=== PATIENT | male | born 1955 | race Caucasian/White ===

== ENCOUNTER → 2020-02-14 | Outpatient (CLI) | payer BC ==
[~2020-02-14] MED LIST: OMNIPAQUE 350 MG/ML, 100ML BOTTLE ONE
[2020-02-14 13:12] LABS: CREATININE 1.44 mg/dL (0.7-1.3)
== END | disposition home or self-care (01) ==
LOC: RAD 12:30
PROVIDERS: ATTEND Nurse Practitioner Family
DX: K76.0 Fatty (change of) liver, not elsewhere classified (principal); K57.30 Diverticulosis of large intestine without perforation or abscess without bleeding; N40.0 Benign prostatic hyperplasia without lower urinary tract symptoms; I25.10 Atherosclerotic heart disease of native coronary artery without angina pectoris; N28.1 Cyst of kidney, acquired; I70.0 Atherosclerosis of aorta
CPT/HCPCS: 36415; 74177; 82565; Q9967

== ENCOUNTER → 2020-06-04 | Outpatient (CLI) | payer BC, OTHER | END | disposition home or self-care (01) | LOC: RAD 10:57 | PROVIDERS: ATTEND Physician Assistant Medical | DX: Z13.6 Encounter for screening for cardiovascular disorders (principal); I70.0 Atherosclerosis of aorta; R09.89 Other specified symptoms and signs involving the circulatory and respiratory systems; R91.1 Solitary pulmonary nodule; I65.23 Occlusion and stenosis of bilateral carotid arteries | CPT/HCPCS: 75571; 93880 ==

== ENCOUNTER → 2020-07-31 | Outpatient (CLI) | payer BC | END | disposition home or self-care (01) | LOC: CFH 10:39 | PROVIDERS: ATTEND Family Medicine | DX: R91.1 Solitary pulmonary nodule (principal); J43.9 Emphysema, unspecified | CPT/HCPCS: 71275; 82565; Q9967 ==

== ENCOUNTER 2020-09-03 07:46 | Outpatient (CLI) | payer BC | END 2020-09-03 23:59 | disposition home or self-care (01) | LOC: CVU 07:46 | PROVIDERS: ATTEND Internal Medicine Cardiovascular Disease | DX: I35.8 Other nonrheumatic aortic valve disorders (principal); I25.10 Atherosclerotic heart disease of native coronary artery without angina pectoris | CPT/HCPCS: 93306 ==

== ENCOUNTER 2020-10-10 11:16 | Day surgery (SDC) | payer BC ==
[~2020-10-10] VITALS: Ht 185.4 cm; Wt 90.9 kg
[2020-10-10 11:51] VITALS: BP 123/83
[2020-10-10] MEDS ORDERED: SODIUM CHLORIDE 0.9% 1,000 ML IV SCH (12:00)
[2020-10-10] MEDS ORDERED: ASPIRIN 325 MG TABLET EC PO ONE (12:00)
[2020-10-10] MEDS ORDERED: TAMS-11 PO (12:02)
[2020-10-10] MEDS ORDERED: ATOR40TA78 PO (12:02)
[2020-10-10] MEDS ORDERED: ASPI81TA45 PO (12:02)
[2020-10-10] MEDS ORDERED: METO25TA2 PO (12:02)
[2020-10-10] MEDS ORDERED: UBID100C41 PO (12:02)
[2020-10-10] MEDS ORDERED: AMLO5TAB4 PO (12:02)
[2020-10-10] MEDS ORDERED: ASPIRIN 325 MG TABLET EC ONE (12:14)
[2020-10-10 12:18] LABS: BASOPHILS % (AUTO) 1 % (0-1); EOSINOPHILS % (AUTO) 2 % (1-7); LYMPHOCYTES % (AUTO) 20 % (22-44); MD NO; MEAN CORPUSCULAR HEMOGLOBIN 33.3 pg (27.5-34.5); MEAN CORPUSCULAR HGB CONC 34.3 g/dL (33.2-36.2); MEAN PLATELET VOLUME 8.8 fL (7.4-10.4); MONOCYTES % (AUTO) 7 % (2-9); NEUTROPHILS % (AUTO) 70 % (42-75); PLATELET COUNT 190 x10^3/uL (130-400); RED BLOOD COUNT 5.15 x10^6/uL (4.38-5.82); RED CELL DISTRIBUTION WIDTH 13.5 % (9.4-14.8)
[2020-10-10 12:30] LABS: ANION GAP 4 mmol/L (5-15); CALCIUM 8.3 mg/dL (8.5-10.1); CHLORIDE 106 mmol/L (98-107)
[2020-10-10 12:31] LABS: CREATININE 1.12 mg/dL (0.7-1.3)
[2020-10-10] MEDS ORDERED: MIDAZOLAM 1 MG/ML, 2ML ONE ×2 (12:33→13:19)
[2020-10-10] MEDS ORDERED: VERAPAMIL 2.5 MG/ML, 2ML ONE (12:34)
[2020-10-10] MEDS ORDERED: HEPARIN 1,000 UNITS/ML, 10ML ONE (12:34)
[2020-10-10] MEDS ORDERED: FENTANYL PF 100 MCG/2ML ONE (12:34)
[2020-10-10] MEDS ORDERED: LIDOCAINE-MPF 1%, 5ML ONE (12:34)
[2020-10-10] MEDS ORDERED: BIVALIRUDIN 250 MG ONE (13:12)
== END 2020-10-10 15:17 | disposition home or self-care (01) ==
LOC: CACL 11:16
PROVIDERS: ATTEND Internal Medicine Cardiovascular Disease
DX: I25.110 Atherosclerotic heart disease of native coronary artery with unstable angina pectoris (principal); I25.84 Coronary atherosclerosis due to calcified coronary lesion; I25.83 Coronary atherosclerosis due to lipid rich plaque; I10 Essential (primary) hypertension; E78.2 Mixed hyperlipidemia; I67.9 Cerebrovascular disease, unspecified; F17.210 Nicotine dependence, cigarettes, uncomplicated; Z82.49 Family history of ischemic heart disease and other diseases of the circulatory system
CPT/HCPCS: 36415; 80048; 85025; 93458; 93571; 99156; 99157; C1769; C1887; C1894; J1644; J2250; J3010; Q9967; J0583